=== PATIENT | male | born 1945 | race Caucasian/White ===

== ENCOUNTER 2017-10-02 06:57 | Day surgery (SDC) | payer OTHER ==
[2017-09-29 14:40] VITALS: BP 105/58
[2017-09-29 15:53] LABS: BASOPHILS % (AUTO) 0.5 % (0.0-5.0); EOSINOPHILS % (AUTO) 1.7 % (0.0-8.0); HEMATOCRIT 41.7 % (42-54); LYMPHOCYTES % (AUTO) 22.8 % (21.0-51.0); MEAN CORPUSCULAR HEMOGLOBIN 28.6 pg (27.0-33.0); MEAN CORPUSCULAR VOLUME 84.3 fL (79-99); MONOCYTES % (AUTO) 8.8 % (3.0-13.0); NEUTROPHILS % (AUTO) 66.2 % (40.0-77.0); PLATELET COUNT (AUTO) 267 K/uL (130-400); RED BLOOD CELL COUNT(AUTO) 4.95 MIL/uL (4.50-6.20); RED CELL DISTRIBUTION WIDTH 14.9 % (11.0-15.5); WHITE BLOOD COUNT (AUTO) 9.6 K/uL (4.8-10.8)
[2017-09-29 16:04] LABS: CREATININE 0.9 mg/dL (0.5-1.5); POTASSIUM 4.4 mmol/L (3.5-5.1)
[~2017-10-02] VITALS: Ht 165.1 cm; Wt 79.8 kg
[2017-10-02] VITALS (16 sets, daily range): BP systolic 108–161; BP diastolic 57–80
[~2017-10-02 06:57] MED LIST: ATOR40TA71 PO; CETI10TA57 PO; ISOS30TA6 PO; LACTATED RINGERS 1000ML 1,000 ML IV SCH; METO-408 PO; TAMS0.4C32 PO; VITAMIN D PO
[2017-10-02] MEDS ORDERED: WATER FOR INJECTION,STERILE 20 ML VIAL ONE (07:45)
[2017-10-02] MEDS: CEFTRIAXONE SODIUM 1 GM ONE ×2 (07:56→09:40)
[2017-10-02] MEDS ORDERED: LIDOCAINE PF 2% 5ML ABBOJECT ONE (09:00)
[2017-10-02] MEDS ORDERED: ONDANSETRON HCL 4 MG/2 ML VIAL ONE (09:00)
[2017-10-02] MEDS ORDERED: DEXAMETHASONE SOD PHOSPHATE 10MG/ML 1ML VIAL ONE (09:00)
[2017-10-02] MEDS ORDERED: GLYCOPYRROLATE 0.2 MG/ML 5 ML VIAL ONE (09:00)
[2017-10-02] MEDS ORDERED: MIDAZOLAM HCL 1 MG/ML 2ML VIAL ONE (09:01)
[2017-10-02] MEDS ORDERED: SUCCINYLCHOLINE 200MG/10ML SYR ONE (09:01)
[2017-10-02] MEDS ORDERED: PROPOFOL 10 MG/ML 20ML VIAL IV ONE (09:01)
[2017-10-02] MEDS ORDERED: FENTANYL CITRATE PF 50 MCG/1 ML 2ML VIAL ONE (09:01)
[2017-10-02] MEDS ORDERED: NEOSTIGMINE METHYLSULFATE 1MG/ML IV ONE (09:01)
[2017-10-02] MEDS ORDERED: ROCURONIUM BROMIDE 10MG/1ML 5ML VL ONE (09:03)
[2017-10-02] MEDS ORDERED: EPHEDRINE SULFATE 50 MG/ML AMPULE ONE (10:01)
[2017-10-03] MEDS ORDERED: CEFTRIAXONE SODIUM 1 GM IVP SCH (06:00)
== END 2017-10-02 12:40 | disposition home or self-care (01) ==
LOC: SUH 06:57 → DAH 06:57 → SUH 12:40
PROVIDERS: ATTEND Surgery
DX: N40.1 Benign prostatic hyperplasia with lower urinary tract symptoms (principal); R31.0 Gross hematuria; R35.0 Frequency of micturition; I10 Essential (primary) hypertension; Z98.890 Other specified postprocedural states; Z79.82 Long term (current) use of aspirin; N32.89 Other specified disorders of bladder
CPT/HCPCS: 36415; 52000; 55700; 76942; 80048; 85025; 87088; 88305; 93005; A4215; A4358; J0330; J0696; J1100; J2001; J2250; J2405; J2704; J2710; J3010; J3490 ×3; J7120